=== PATIENT | female | born 1980 | race African-American/Black ===

== ENCOUNTER → 2020-11-30 | Emergency (ER) | payer BC ==
[~2020-11-30] MED LIST: CHILDREN'S ASPI81 M1 PO; FELODIPINE 5 MG5 M1 PO; GLUCOPHAGE XR500 MG PO; HYDROCHLOROTHIA25 M2 PO; JANUVIA100 MG PO
[2020-11-30 14:48] VITALS: BP 183/108
--- NOTE | 2020-12-01 09:47 | EKG ---
[address] [employer] [place] [address] ELECTROCARDIOGRAM REPORT Name: TATO MARIE Room #: [facility] Youssef#: [id number] Admission: 11/30/20 Attend Phys: Discharge: Date of : 84 Report #: [id number] [facility] ED Test Date: 2020-11-30 Test Time: 14:56:32 Pat Name: TATO MARIE Department: Room: Gender: F [employer] Saw Operator: ASIF : 1980 Requested By: Raul Roberson Order Number: [id number] MD: Anmol Lopez Measurements Intervals [place] Rate: 74 P: 6 DC: 156 QRS: 38 QRSD: 94 T: -28 QT: 383 QTc: 425 Interpretive Statements Sinus rhythm Borderline T abnormalities Compared to ECG 12/07/2017 06:52:47 No significant changes Electronically Signed On 12-01-2020 9:47:08 CDT by Anmol Lopez [email or web address] <ELECTRONICALLY SIGNED> By: Anmol Lopez MD, [facility] 12/01/20 0947 [id number] 1456 Anmol Lopez MD, FACC /EPI
== END ==
LOC: ER 14:44
DX: R07.89 Other chest pain (principal); I10 Essential (primary) hypertension; E11.9 Type 2 diabetes mellitus without complications; Z53.21 Procedure and treatment not carried out due to patient leaving prior to being seen by health care provider; Z90.711 Acquired absence of uterus with remaining cervical stump; Z88.8 Allergy status to other drugs, medicaments and biological substances